=== PATIENT | female | born 1960 | race Caucasian/White ===

== ENCOUNTER → 2024-10-01 | Day surgery (SDC) | payer OTHER ==
[~2024-10-01] MED LIST: ALLEGRA ALLERGY60 MG PO; CYMBALTA20 MG PO; FENTANYL CITRATE/PF 100MCG/2 ML INJ ONE; FLONASE ALLERG9.9 ML INH; FUROSEMIDE40 MG PO; GLUCAGON FOR INJ 1 MG VIAL ONE; LACTATED RINGER'S 1,000 ML ONE; LIDOCAINE HCL 2% LOCAL INJ 5 ML SDV VIAL INJ ONE; LIPITOR10 MG PO; MONTELUKAST SOD10 MG PO; MOUNJARO7.5 MG/0.5; MULTI-VITAMIN1 EACH PO; NEURONTIN100 MG PO; PROPOFOL IV EMULSION 10 MG/ML 20 ML VIAL ONE; PROPOFOL IV EMULSION 50 ML IV ONE; VENTOLIN HFA18 GM INH; [UNRECOGNIZED DRUG - OTHER]
[2024-10-01 09:09] VITALS: TEMP 97.2
[2024-10-01 09:35] VITALS: BP 121/65; PULSE 65; RESP 16; O2SAT 97
== END | disposition home or self-care (01) ==
LOC: OR 06:17
PROVIDERS: ATTEND Internal Medicine Gastroenterology
DX: K29.50 Unspecified chronic gastritis without bleeding (principal); K20.90 Esophagitis, unspecified without bleeding; Z09 Encounter for follow-up examination after completed treatment for conditions other than malignant neoplasm; K29.80 Duodenitis without bleeding; K44.9 Diaphragmatic hernia without obstruction or gangrene; K31.7 Polyp of stomach and duodenum; K31.89 Other diseases of stomach and duodenum; D12.5 Benign neoplasm of sigmoid colon; K62.1 Rectal polyp; K57.30 Diverticulosis of large intestine without perforation or abscess without bleeding; K64.8 Other hemorrhoids; K58.1 Irritable bowel syndrome with constipation; Z80.0 Family history of malignant neoplasm of digestive organs; E78.5 Hyperlipidemia, unspecified; E11.9 Type 2 diabetes mellitus without complications; Z79.85 Long-term (current) use of injectable non-insulin antidiabetic drugs; M50.30 Other cervical disc degeneration, unspecified cervical region; G89.29 Other chronic pain; H81.09 Meniere's disease, unspecified ear; J45.909 Unspecified asthma, uncomplicated; M79.7 Fibromyalgia; Z71.3 Dietary counseling and surveillance; Z68.32 Body mass index [BMI] 32.0-32.9, adult; R94.31 Abnormal electrocardiogram [ECG] [EKG]; Z01.810 Encounter for preprocedural cardiovascular examination; Z79.899 Other long term (current) drug therapy
CPT/HCPCS: 36415; 43239; 43251; 45380; 45385; 82948; 93005; J1610; J2003; J2470; J2704 ×2; J3010; J7121; 45378

== ENCOUNTER 2025-01-06 13:54 | Observation (INO) | payer OTHER ==
[~2025-01-06] VITALS: Ht 165.1 cm; Wt 83.9 kg
[~2025-01-06 13:54] MED LIST changes: -FENTANYL CITRATE/PF 100MCG/2 ML INJ ONE; -GLUCAGON FOR INJ 1 MG VIAL ONE; -LACTATED RINGER'S 1,000 ML ONE; -LIDOCAINE HCL 2% LOCAL INJ 5 ML SDV VIAL INJ ONE; -PROPOFOL IV EMULSION 10 MG/ML 20 ML VIAL ONE; -PROPOFOL IV EMULSION 50 ML IV ONE
[2025-01-06 14:53] LABS: BASOPHILS % 0.5 % (0.0-1.0); EOSINOPHILS % 0.9 % (0.0-6.0); LYMPHOCYTES % 9.9 % (18.0-39.1); MONOCYTES % 7.1 % (4.4-11.3); NEUTROPHILS % 81.3 % (38.7-80.0); RED CELL DISTRIBUTION WIDTH 13.2 % (11.7-14.4)
[2025-01-06 15:05] LABS: INR 1.0
[2025-01-06] MEDS: ALBUTEROL/IPRATROPIUM 3 ML NEB NEB ONE (15:08)
[2025-01-06 15:12] LABS: EST GLOMERULAR FILTRATION RATE 80.0 ML/MIN (>=60)
[2025-01-06 15:14] LABS: CORONAVIRUS COVID-19 AG NEGATIVE (NEGATIVE)
[2025-01-06] MEDS: SODIUM CHLORIDE 0.9% 1000ML 1,000 ML IV STA (15:46)
[2025-01-06] MEDS: METHYLPREDNISOLONE SOD SUCC 125 MG/2ML VIAL IV STA (15:47)
[2025-01-06] MEDS ORDERED: IOPAMIDOL 370 MG/ML 100 ML INFUS..BTL INJ ONE (16:56)
[2025-01-06] MEDS ORDERED: ONDANSETRON HCL INJ 2MG/ML 2ML 2 MG/ML VIAL IV PRN (18:30)
[2025-01-06 18:56] VITALS: PULSE 88; RESP 18; TEMP 98.4
[2025-01-06] MEDS: SODIUM CHLORIDE 0.9% 1000ML 1,000 ML IV SCH (18:59)
[2025-01-06 19:45] VITALS: PULSE 89; RESP 18; O2SAT 97
[2025-01-06] MEDS: ALBUTEROL SULF 0.083% NEB SOLN 3 ML NEB NEB SCH (19:54)
[2025-01-06 20:30] VITALS: BP 137/58; PULSE 100; RESP 20; TEMP 97.5; O2SAT 95
[2025-01-06 21:00] VITALS: BP 137/58; PULSE 100; RESP 20; TEMP 97.5; O2SAT 95
[2025-01-06] MEDS: METHYLPREDNISOLONE SOD SUCC 40 MG/ML VIAL 1ML IV SCH (23:35)
[2025-01-06 23:39] VITALS: BP 117/57; PULSE 81; RESP 18; TEMP 98.1; O2SAT 97
[2025-01-07] VITALS (7 sets, daily range): BP systolic 130–145; BP diastolic 61–65; PULSE 70–91; RESP 18–20; TEMP 97.5–98.1; O2SAT 94–98
[2025-01-07] MEDS ORDERED: ACETAMINOPHEN 325 MG TAB PO PRN (01:00)
[2025-01-07] MEDS ORDERED: ALBUTEROL/IPRATROPIUM 3 ML NEB NEB PRN (01:00)
[2025-01-07] MEDS ORDERED: MELATONIN 5 MG TABLET PO PRN (01:00)
[2025-01-07] MEDS ORDERED: DEXTROSE 50% SYRINGE 50 ML IV PRN (01:00)
[2025-01-07] MEDS ORDERED: HYDRALAZINE HCL 20 MG/ML VIAL IV PRN (01:00)
[2025-01-07] MEDS: METHYLPREDNISOLONE SOD SUCC 40 MG/ML VIAL 1ML IV SCH (01:00)
[2025-01-07] MEDS ORDERED: SIMETHICONE 80 MG CHEW PO PRN (01:00)
[2025-01-07] MEDS ORDERED: BENZONATATE 100 MG CAP PO PRN (01:00)
[2025-01-07] MEDS ORDERED: LIDOCAINE 4% PATCH TP PRN (01:00)
[2025-01-07] MEDS ORDERED: DIPHENHYDRAMINE HCL 25 MG CAP PO PRN (01:00)
[2025-01-07] MEDS ORDERED: DOCUSATE SODIUM 100 MG CAP PO PRN (01:00)
[2025-01-07] MEDS ORDERED: POTASSIUM CHLORIDE 20 MEQ TAB CR PO PRN (01:00)
[2025-01-07 05:07] LABS: BASOPHILS % 0.4 % (0.0-1.0); EOSINOPHILS % 0.0 % (0.0-6.0); LYMPHOCYTES % 9.8 % (18.0-39.1); MONOCYTES % 2.1 % (4.4-11.3); NEUTROPHILS % 87.3 % (38.7-80.0); RED CELL DISTRIBUTION WIDTH 13.3 % (11.7-14.4)
[2025-01-07 06:05] LABS: EST GLOMERULAR FILTRATION RATE 100.0 ML/MIN (>=60)
[2025-01-07] MEDS: PANTOPRAZOLE SOD 40 MG TABEC PO SCH (08:58)
[2025-01-07] MEDS: DULOXETINE HCL 20 MG DELAYED RELEASE PO SCH (08:58)
[2025-01-07] MEDS: ATORVASTATIN 10 MG TAB PO SCH (08:58)
[2025-01-07] MEDS: MONTELUKAST SODIUM 10 MG TAB PO SCH (08:58)
[2025-01-07] MEDS ORDERED: ENOXAPARIN SOD INJ 40 MG/0.4 ML SYR SC SCH (17:00)
[2025-01-07] MEDS ORDERED: BUDESONIDE/FORMOTEROL 160/4.5MCG INHALER INH SCH (19:00)
[2025-01-07] MEDS ORDERED: GABAPENTIN 100 MG CAP PO SCH (21:00)
== END 2025-01-07 16:20 | disposition home or self-care (01) ==
LOC: ER 14:23 → ERHOLD 18:21 → MED/SURG 20:09
PROVIDERS: ADMIT Internal Medicine; ATTEND Internal Medicine
DX: J45.901 Unspecified asthma with (acute) exacerbation (principal); J06.9 Acute upper respiratory infection, unspecified; I10 Essential (primary) hypertension; E78.5 Hyperlipidemia, unspecified; F41.8 Other specified anxiety disorders; Z87.442 Personal history of urinary calculi; G43.909 Migraine, unspecified, not intractable, without status migrainosus
CPT/HCPCS: 36415 ×2; 71045; 71260; 80053 ×2; 82550; 83518; 83735; 83880; 84484 ×2; 85025 ×2; 85379; 85610; 85730; 87040; 87070; 87428; 93005; 93306; 94640 ×2; 94799 ×2; 99284; G0378 ×2; J0456; J2470; J2919 ×3; J7030 ×2; J7050; Q9967